=== PATIENT | female | born 1960 | race Hispanic/Latino ===

== ENCOUNTER 2016-11-17 14:57 | Emergency (ER) | payer MEDICARE, BC ==
[2016-11-17 15:08] VITALS: BMI 37.4
[2016-11-17 15:17] VITALS: BP 102/68
[2016-11-17] MEDS ORDERED: TDAP Vaccine 0.5 mL Syr IM ONE (15:43)
[2016-11-17] MEDS ORDERED: Lidocaine 1% Inj (20ml) IJ STA (15:43)
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
[2016-11-17 16:58] VITALS: PULSE 88; RESP 18; TEMP 98.1; O2SAT 99
--- NOTE | 2016-11-18 09:06 | RAD ---
PROCEDURE: Right Thumb radiographs. HISTORY: rt. hand thumb laceration by glass COMPARISON: None. TECHNIQUE: AP radiograph of the right hand, as well as spot oblique and lateral images of thumb were obtained. FINDINGS: RIGHT THUMB: Normal right thumb, without fracture or focal lesion. Remainder of the right hand (as seen on the AP view) grossly unremarkable. JOINTS: Normal. SOFT TISSUES: No radiopaque foreign body. OTHER FINDINGS: None. IMPRESSION: No acute fracture or dislocation.
== END 2016-11-17 16:57 | disposition home or self-care (01) ==
LOC: ED 14:57
DX: S61.011A Laceration without foreign body of right thumb without damage to nail, initial encounter (principal); W25.XXXA Contact with sharp glass, initial encounter; I10 Essential (primary) hypertension; E78.5 Hyperlipidemia, unspecified; E03.9 Hypothyroidism, unspecified; N95.9 Unspecified menopausal and perimenopausal disorder; Z23 Encounter for immunization

== ENCOUNTER 2017-09-08 15:23 | Emergency (ER) | payer MEDICARE ==
[2017-09-08 15:51] VITALS: BMI 39.1
[2017-09-08] MEDS ORDERED: Metoprolol 1 mg/ml Inj IVP STA (15:53)
[2017-09-08] MEDS ORDERED: Albuterol-Ipratrop 3 mg / 0.5 (3 ml) UD IH STA (16:01)
[2017-09-08] MEDS ORDERED: Albuterol 0.083% Inhal Sol (2.5 mg/3 mL) UD INH STA (16:01)
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
[2017-09-08] MEDS ORDERED: HYDROmorphone 1 mg/ml ISec IVP STA (16:37)
[2017-09-08 16:49] LABS: BASO # 0.07 K/mm3 (0.0-2.0); BASO % 0.6 % (0.0-3.0); EOS # 0.5 (0.0-0.7); EOS % 4.5 % (1.5-5.0); GRAN # 8.13 (1.4-6.5); GRAN % 67.8 % (50.0-68.0); HEMOGLOBIN 12.7 g/dL (12.0-16.0); LYMPH # 2.3 (1.2-3.4); LYMPH % 19.3 % (22.0-35.0); MEAN CELL VOLUME 90.2 fl (80.0-105.0); MEAN CORPUSCULAR HEMOGLOBIN 30.5 pg (25.0-35.0); MEAN CORPUSCULAR HGB CONC 33.8 g/dl (31.0-37.0); MEAN PLATELET VOLUME 9.9 fl (7.0-11.0); MONO # 0.9 (0.1-0.6); MONO % 7.8 % (1.0-6.0); RBC 4.17 10^6/uL (3.5-6.1); RED CELL DISTRIBUTION WIDTH 15.3 % (11.5-14.5)
[2017-09-08 16:56] LABS: ALB/GLOB RATIO 1.1 (1.1-1.8); ALT/SGPT 32 U/L (7-56); AST/SGOT 30 U/L (14-36); BLOOD UREA NITROGEN 13 mg/dL (7-21); CALCIUM 10.2 mg/dL (8.4-10.5); GFR AFRICAN-AMERICAN 51; GFR NON-AFRICAN AMERICAN 42
[2017-09-08 17:01] LABS: INR 1.13 (0.93-1.08); PROTHROMBIN TIME 12.9 SECONDS (9.4-12.5)
[2017-09-08 17:07] LABS: TROPONIN I < 0.01 ng/mL
[2017-09-08] MEDS ORDERED: Sodium Chloride 0.9% 1,000 ML IV STA ×2 (17:20→18:37)
--- NOTE | 2017-09-08 17:29 | RAD ---
HISTORY: Chest Pain COMPARISON: 03/22/2014 FINDINGS: LUNGS: No active pulmonary disease. PLEURA: No significant pleural effusion identified, no pneumothorax apparent. CARDIOVASCULAR: No radiographic findings to suggest acute or significant cardiovascular disease. OSSEOUS STRUCTURES: No significant abnormalities. VISUALIZED UPPER ABDOMEN: Normal. OTHER FINDINGS: None. IMPRESSION: No active disease. No significant interval change compared to the prior examination(s). Rim
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
--- NOTE | 2017-09-08 19:02 | CARD ---
APPROVED REPORT EKG Measurement Heart [id number] <Conclusion> Sinus tachycardia Otherwise normal ECG
[2017-09-08 20:06] VITALS: BP 130/67; PULSE 85; RESP 19; TEMP 98; O2SAT 99
== END 2017-09-08 20:45 | disposition home or self-care (01) ==
LOC: ED 15:23
DX: S22.41XD Multiple fractures of ribs, right side, subsequent encounter for fracture with routine healing (principal); V43.52XD Car driver injured in collision with other type car in traffic accident, subsequent encounter; I10 Essential (primary) hypertension; D64.9 Anemia, unspecified; F17.210 Nicotine dependence, cigarettes, uncomplicated
CPT/HCPCS: 71045; 71275; 80053; 82550; 83615; 84484; 85025; 85378; 85610; 93005; 94640; 96361; 96374; 96375; 99284; J1170; J2405; J7040; Q9967

== ENCOUNTER 2017-10-06 10:37 | Emergency (ER) | payer OTHER, MEDICARE, BC ==
[2017-10-06 10:38] VITALS: BMI 39.1
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
[2017-10-06 11:38] VITALS: RESP 18; TEMP 98.2; O2SAT 98
--- NOTE | 2017-10-06 12:07 | CT ---
PROCEDURE: CT Chest without contrast HISTORY: strenum pain COMPARISON: 09/08/2017 CT TECHNIQUE: Contiguous axial images were obtained through the chest without intravenous contrast enhancement. Sagittal and coronal reconstructions were performed. Radiation dose (DLP): 1081 mGy-cm. This CT exam was performed using one or more of the following dose reduction techniques: Automated exposure control, adjustment of the mA and/or kV according to patient size, and/or use of iterative reconstruction technique. FINDINGS: LUNGS: Clear lungs. Visualized airway clear. MEDIASTINUM: Unremarkable thoracic aorta. No aneurysm. Normal sized heart. Main pulmonary artery unremarkable. No vascular congestion. No lymphadenopathy. PLEURA: No pleural fluid. No pneumothorax. BONES: There is a poorly defined lytic lesion in the upper sternum at the junction of the manubrium. This was not present on the previous study. This is suspicious for a bony metastasis. Clinical correlation is suggested. The finding is seen on sagittal image 59 series 602 and coronal image 27 series 601. In the coronal plane the lesion measures 21 mm wide by 14 mm height. This is seen on axial image 53 series 4. UPPER ABDOMEN: Grossly unremarkable. OTHER FINDINGS: None. IMPRESSION: Lytic lesion in the upper sternum at the junction with the manubrium. Findings suspicious for bony metastasis. See comments
[2017-10-06 12:18] LABS: BASO # 0.04 K/mm3 (0.0-2.0); BASO % 0.4 % (0.0-3.0); EOS # 0.9 (0.0-0.7); EOS % 8.8 % (1.5-5.0); GRAN # 6.73 (1.4-6.5); GRAN % 63.4 % (50.0-68.0); HEMOGLOBIN 13.5 g/dL (12.0-16.0); LYMPH # 2.2 (1.2-3.4); LYMPH % 20.6 % (22.0-35.0); MEAN CELL VOLUME 90.4 fl (80.0-105.0); MEAN CORPUSCULAR HEMOGLOBIN 30.1 pg (25.0-35.0); MEAN CORPUSCULAR HGB CONC 33.3 g/dl (31.0-37.0); MEAN PLATELET VOLUME 9.7 fl (7.0-11.0); MONO # 0.7 (0.1-0.6); MONO % 6.8 % (1.0-6.0); RBC 4.48 10^6/uL (3.5-6.1); RED CELL DISTRIBUTION WIDTH 15.5 % (11.5-14.5); WHITE BLOOD COUNT 10.6 10^3/ul (4.5-11.0)
[2017-10-06 12:36] LABS: ALB/GLOB RATIO 1.3 (1.1-1.8); ALBUMIN 4.3 g/dL (3.0-4.8); ALT/SGPT 35 U/L (7-56); AST/SGOT 36 U/L (14-36); BLOOD UREA NITROGEN 20 mg/dL (7-21); CALCIUM 9.7 mg/dL (8.4-10.5); GFR AFRICAN-AMERICAN > 60; GFR NON-AFRICAN AMERICAN 57
[2017-10-06 12:39] LABS: TROPONIN I < 0.01 ng/mL
[2017-10-06 13:07] VITALS: BP 135/69; PULSE 79
--- NOTE | 2017-10-06 22:25 | CARD ---
APPROVED REPORT EKG Measurement Heart [id number] VT [id number] <Conclusion> Normal sinus rhythm Normal ECG
== END 2017-10-06 14:18 | disposition home or self-care (01) ==
LOC: ED 10:37
DX: S22.20XD Unspecified fracture of sternum, subsequent encounter for fracture with routine healing (principal); V43.52XD Car driver injured in collision with other type car in traffic accident, subsequent encounter; R07.89 Other chest pain; I10 Essential (primary) hypertension; D64.9 Anemia, unspecified; F17.210 Nicotine dependence, cigarettes, uncomplicated
CPT/HCPCS: 71250; 80053; 82550; 83615; 84484; 85025; 93005; 96374; 99284; J1885

== ENCOUNTER 2018-06-26 13:02 | Outpatient (CLI) | payer MEDICARE, BC | END 2018-06-26 13:03 | disposition home or self-care (01) | LOC: RAD 13:02 ==

== ENCOUNTER 2018-10-19 15:21 | Emergency (ER) | payer MEDICARE, BC ==
[2018-10-19 15:31] VITALS: BP 122/81; PULSE 90; RESP 18; TEMP 98.4; O2SAT 99; BMI 34.4
== END 2018-10-19 16:00 | disposition left against medical advice (07) ==
LOC: ED 15:21
DX: Z02.89 Encounter for other administrative examinations (principal); M25.519 Pain in unspecified shoulder

== ENCOUNTER 2018-10-26 09:01 | Outpatient (CLI) | payer MEDICARE, BC | END 2018-10-26 09:02 | disposition home or self-care (01) | LOC: RAD 09:01 ==